=== PATIENT | female | born 1985 | race Caucasian/White ===

== ENCOUNTER 2022-05-13 15:45 | Outpatient (CLI) | payer OTHER ==
--- NOTE | 2022-05-13 15:37 | XRAY Report ---
PROCEDURE: Ankle 3 View LT INDICATIONS: LEFT ANKLE SPRAIN TECHNIQUE: 3 views of the ankle were acquired. COMPARISON: None FINDINGS: Bones: There is a mildly displaced oblique fracture of the distal fibula. There is no widening of the syndesmosis. Ankle mortise is normally aligned. No suspicious bony lesions. Soft tissues: Lateral malleolar edema.. Achilles tendon appears normal. IMPRESSION: Lateral malleolar edema with distal fibular fracture. Reviewed by: Yari Arshad MD on 05/13/2022 3:35 PM PDT Approved by: Yari Arshad MD on 05/13/2022 3:35 PM PDT Station ID: [id number]
== END 2022-05-13 15:48 | disposition home or self-care (01) ==
LOC: DI.S 15:45
PROVIDERS: ATTEND Physician Assistant Medical
DX: S82.432A Displaced oblique fracture of shaft of left fibula, initial encounter for closed fracture (principal); R60.0 Localized edema